=== PATIENT | male | born 1990 | race Caucasian/White ===

== ENCOUNTER 2019-12-23 21:44 | Emergency (ER) | payer MEDICAID ==
[~2019-12-23] VITALS: Ht 185.4 cm; Wt 107.6 kg
[2019-12-23 21:45] VITALS: BP 131/74
--- NOTE | 2019-12-23 21:51 | NUR ---
PT. STATED WHEN ASKED WHY HE WAS COMING INTO THE E.R. "MY FRIEND SAID THIS WAS THE PLACE TO GO" WHEN ASKED TO ELABORATE FURTHER PT. STATED "I JUST DON'T FEEL WELL.
[2019-12-23] MEDS ORDERED: ACETAMINOPHEN 500 MG TABLET PO ONE (22:30)
[2019-12-23] MEDS ORDERED: ACETAMINOPHEN 500 MG TABLET ONE (22:33)
--- NOTE | 2019-12-23 22:36 | NUR ---
PT MEDICATED PER MAR FOR MELGAR, PT RESTING IN [facility] ON MONITOR WITH CALL LIGHT WITHIN REACH. NO NEEDS AT THIS TIME.
--- NOTE | 2019-12-23 22:51 | NUR ---
RECEIVED REPORT FROM JONAS RALPH. ASSUMING CARE AT THIS TIME.
[2019-12-23 23:02] LABS: BASOPHILS % (AUTO) 1 % (0-1); EOSINOPHILS % (AUTO) 2 % (1-7); LYMPHOCYTES # (AUTO) 3.19 x10^3/uL (1-3.4); LYMPHOCYTES % (AUTO) 26 % (22-44); MD NO; MEAN CORPUSCULAR HEMOGLOBIN 29.8 pg (27.5-34.5); MEAN CORPUSCULAR VOLUME 87.7 fL (81-97); MEAN PLATELET VOLUME 7.4 fL (7.4-10.4); MONOCYTES # (AUTO) 0.78 x10^3/uL (0.2-0.8); MONOCYTES % (AUTO) 6 % (2-9); NEUTROPHILS # (AUTO) 7.89 x10^3/uL (1.8-6.8); NEUTROPHILS % (AUTO) 65 % (42-75); PLATELET COUNT 360 x10^3/uL (130-400); RED BLOOD COUNT 5.04 x10^6/uL (4.38-5.82); RED CELL DISTRIBUTION WIDTH 12.6 % (9.4-14.8)
[2019-12-23 23:11] LABS: ALANINE AMINOTRANSFERASE 34 U/L (12-78); ALBUMIN 3.7 g/dL (3.4-5.0); ANION GAP 9 mmol/L (5-15); CALCIUM 8.6 mg/dL (8.5-10.1); CHLORIDE 109 mmol/L (98-107); CREATININE 1.04 mg/dL (0.7-1.3)
[2019-12-23 23:14] LABS: ALKALINE PHOSPHATASE 99 U/L (45-117); BILIRUBIN,TOTAL 0.6 mg/dL (0.2-1.0); TOTAL PROTEIN 7.6 g/dL (6.4-8.2)
--- NOTE | 2019-12-23 23:16 | NUR ---
ALL RESULTS ARE BACK AT THIS TIME. CHART UP FOR RECHECK.
== END 2019-12-23 23:45 | disposition home or self-care (01) ==
LOC: ED 23:15
DX: R10.84 Generalized abdominal pain (principal); R51 Headache; Z72.9 Problem related to lifestyle, unspecified; Z59.0 Homelessness
CPT/HCPCS: 36415; 80053; 83690; 85025; 99283

== ENCOUNTER 2019-12-27 16:28 | Emergency (ER) | payer MEDICAID ==
[~2019-12-27] VITALS: Ht 185.4 cm; Wt 109.5 kg
[2019-12-27 16:30] VITALS: BP 141/78
--- NOTE | 2019-12-27 16:49 | NUR ---
EDUCATION COORDINATOR: PT AMBULATORY TO ROOM FROM LOBBY
== END 2019-12-27 18:29 | disposition home or self-care (01) ==
LOC: ED 18:00
DX: F31.9 Bipolar disorder, unspecified (principal); L55.0 Sunburn of first degree; F17.200 Nicotine dependence, unspecified, uncomplicated
CPT/HCPCS: 99283